=== PATIENT | female | born 1940 | race Asian ===

== ENCOUNTER 2017-09-22 07:20 | Observation (INO) | payer MEDICARE ==
--- NOTE | 2017-09-19 11:20 | Diagnostic Imaging Report ---
PROCEDURE: X-RAY CHEST, TWO VIEWS COMPARISON: None. INDICATIONS: PREOPERATIVE CHEST XRAY FOR KNEE SURGERY FINDINGS: LUNGS: No consolidations or edema. PLEURA: No effusions or pneumothorax. HEART \T\ MEDIASTINUM: The heart is within normal size-limits. Calcification within the aortic knob and tortuosity. BONES \T\ SOFT TISSUES: No acute findings. Moderate thoracolumbar scoliosis. CONCLUSION: No acute thoracic abnormality. Marcos Sanchez D.O. Dictated by: Marcos Sanchez D.O. on 09/19/2017 at 11:25 Electronically approved by: Marcos Sanchez D.O. on 09/19/2017 at 11:25
[~2017-09-22] VITALS: Ht 149.9 cm; Wt 43.8 kg
[~2017-09-22 07:20] MED LIST: AMLODIPINE BESYL5 MG PO; ATORVASTATIN CA10 MG PO; DIOVAN HCT 1601 EAC1 PO; DIOVAN HCT 3201 EACH PO; LEXAPRO10 MG PO; LIPITOR20 MG PO; METFORMIN HCL500 MG PO; PANTOPRAZOLE SO40 MG PO
[2017-09-22] MEDS ORDERED: ROPIVACAINE 246.25 MG, EPINEPHRINE HCL 1:1000 0.5 MG, CLONIDINE HCL 0.08 MG, KETOROLAC ... INJ ONE ×5 (07:30)
[2017-09-22] MEDS ORDERED: CELECOXIB 200 MG CAP ONE (07:54)
[2017-09-22] MEDS ORDERED: DEXAMETHASONE SOD PHOS 10 MG/1 ML VIAL ONE (07:55)
[2017-09-22] MEDS ORDERED: GABAPENTIN 300 MG CAP ONE (07:55)
[2017-09-22] MEDS ORDERED: CEFAZOLIN SOD 2 GM/D5W 50ML 50 ML IV ONE (07:55)
[2017-09-22] MEDS ORDERED: BACITRACIN 50,000 UNIT VIAL ONE (09:03)
[2017-09-22] MEDS ORDERED: TRANEXAMIC ACID 1,000 MG/10 ML ML ONE (09:03)
[2017-09-22] MEDS ORDERED: MUPIROCIN 2% OINT 22 GM TUBE ONE (09:03)
[2017-09-22] MEDS ORDERED: ACETAMINOPHEN 650 MG SUPP PR PRN (11:15)
[2017-09-22] MEDS ORDERED: PROMETHAZINE HCL (IM) 25 MG/ML VIAL IM PRN (11:15)
[2017-09-22] MEDS ORDERED: DIPHENHYDRAMINE HCL INJ 50 MG/ML VIAL IM/IV PRN (11:15)
[2017-09-22] MEDS ORDERED: ONDANSETRON HCL INJ 2 MG/ML VIAL IV PRN (11:15)
[2017-09-22] MEDS ORDERED: HYDROCODONE/APAP 7.5MG-325MG 1 EA TAB PO PRN (11:15)
[2017-09-22] MEDS ORDERED: HYDROCODONE/APAP 5MG-325MG TAB PO PRN (11:15)
[2017-09-22] MEDS ORDERED: DOCUSATE SODIUM 100 MG CAP PO PRN (11:15)
[2017-09-22] MEDS ORDERED: KETOROLAC TROMETHAMINE 30 MG/ML VIAL IV PRN (11:15)
[2017-09-22] MEDS: ACETAMINOPHEN 1000 MG/100 ML IV SCH ×2 (12:00→18:10)
--- NOTE | 2017-09-22 12:02 | Operative Report ---
DATE OF PROCEDURE: September 22, 2017 SENIOR DATA DEVELOPER: Robles Lopez PA-C The patient was brought to the operating room for induction of anesthesia. Throughout this case, my PA's assistance was necessary for retraction of soft tissue and positioning of the extremity. This allows for efficient and technically successful execution of the operation and is considered medically necessary. PREOPERATIVE DIAGNOSIS: Osteoarthritis, right knee. POSTOPERATIVE DIAGNOSIS: Osteoarthritis, right knee. PROCEDURE: Right total knee arthroplasty. INDICATIONS: The patient is a 77-year-old lady with end-stage arthritis in her right knee. She has failed extensive conservative management and would like to proceed with a right total knee replacement. The risks and benefits of the procedure have been discussed. She states she understands and wishes to proceed. DESCRIPTION OF PROCEDURE: The patient was brought into the operating room and placed under general anesthetic. She received prophylactic antibiotics, a regional block, and a dose-adjusted tranexamic acid in the holding area. Her right lower extremity was prepped and draped in a sterile manner. A preoperative time out was performed. Extremity was exsanguinated, and a proximal tourniquet was inflated to 275 mmHg. An anterior approach with a medial parapatellar arthrotomy was performed. Clear synovial fluid was evacuated from the joint. Complete loss of articular cartilage was noted in the medial compartment. Soft-tissue releases were performed to bring the knee up into flexion with the patella everted. The cruciate ligaments, meniscal remnants and marginal osteophytes were removed. A [employer] II posterior stabilized knee system was used throughout the case. An extramedullary cutting guide was used to resect the proximal tibia. The posterior slope was dialed in to match the existing slope. The tibial baseplate was noted to be a size number 2. The central fin punch was carefully impacted, and attention was directed towards the distal femur. An intramedullary cutting guide was used to resect the distal femur in 6 degrees of valgus and rotation referenced off of a combination of landmarks including [place] line , the epicondylar axis and posterior condyles. The femoral component was a size number 3. The anterior and posterior cuts were made. Trial reductions were performed. A 9-mm ultracongruent tibial insert provided appropriate soft-tissue balancing in flexion and extension. The patella was resurfaced with a 26 mm x 7.5 mm patellar button. The thickness was checked before and after and was between 18 and 19 mm each time. Patellar tracking was noted to be concentric. The trial implants were removed. A dose-adjusted pericapsular CLAUDIA injection was placed into the surrounding soft tissue. The knee was thoroughly irrigated with a Pulsavac. The components were cemented into place using a single mix of [place] cement preloaded with antibiotics. Care was taken to remove extravasated cement. The wound was further irrigated while the cement cured. The arthrotomy was closed with interrupted #1 Ethibond. The knee was put through flexion and extension to ensure a secure closure. The skin was then closed with subcuticular Vicryl and ruby. A sterile bandage was applied. The patient was extubated and transported to the recovery room in stable condition. Blood loss was minimal. All needle and sponge counts were correct. Job#: [id number]
--- NOTE | 2017-09-22 12:06 | Diagnostic Imaging Report ---
PROCEDURE:X-RAY RIGHT KNEE, ONE OR TWO VIEWS COMPARISON:None. INDICATIONS:STATUS POST RIGHT KNEE SURGERY FINDINGS:Status post total right knee arthroplasty with intact prosthesis in adequate anatomic alignment. There is post-operative soft tissue swelling and gas. Multiple surgical skin ruby. No acute fracture-dislocation. No definite intra-osseous lesion. CONCLUSION:Status post total right knee arthroplasty with intact prosthesis in adequate anatomic alignment. Dictated by: Richard Glasgow M.D. on 09/22/2017 at 12:10 Electronically approved by: Richard Glasgow M.D. on 09/22/2017 at 12:10
[2017-09-22] MEDS ORDERED: LABETALOL HCL 20 ML ONE (12:14)
[2017-09-22 13:46] VITALS: BP 184/83
[2017-09-22 14:00] VITALS: BP 184/83
[2017-09-22] MEDS: SODIUM CHLORIDE 0.9% 1000ML 1,000 ML IV SCH ×2 (16:24→21:08)
[2017-09-22 17:22] VITALS: BP 163/78
[2017-09-22] MEDS ORDERED: ROCURONIUM BROMIDE 10 MG/ML 5ML VIAL ONE (17:29)
[2017-09-22] MEDS ORDERED: PROPOFOL IV EMULSION 10 MG/ML 20 ML VIAL ONE (17:29)
[2017-09-22] MEDS ORDERED: GLYCOPYRROLATE INJ 1MG/ 5 ML SYR ONE (17:29)
[2017-09-22] MEDS ORDERED: NEOSTIGMINE 5 MG/5ML SYR ONE (17:29)
[2017-09-22] MEDS ORDERED: SEVOFLURANE INHAL SOLN 250 ML PEN BTL ONE (17:29)
[2017-09-22] MEDS ORDERED: LABETALOL HCL 5 MG/ML 20ML VIAL ONE (17:29)
[2017-09-22] MEDS ORDERED: LIDOCAINE HCL 2% LOCAL INJ 5 ML SDV VIAL INJ ONE (17:29)
[2017-09-22] MEDS ORDERED: ONDANSETRON HCL INJ 2 MG/ML VIAL ONE (17:29)
[2017-09-22] MEDS ORDERED: EPINEPHRINE HCL INJ 1 MG/ML AMP ONE (17:39)
[2017-09-22] MEDS ORDERED: BUPIVACAINE HCL 0.5% INJ 30 ML VIAL INJ ONE (17:39)
[2017-09-22] MEDS ORDERED: FENTANYL CITRATE/PF 100MCG/2 ML INJ ONE (17:43)
[2017-09-22] MEDS ORDERED: MIDAZOLAM HCL 2 MG/2 ML VIAL ONE (17:43)
[2017-09-22] MEDS ORDERED: CEFAZOLIN SOD 1 GM/D5W 50ML 50 ML IV SCH (18:00)
[2017-09-22] MEDS: ASPIRIN 325 MG TAB PO SCH (18:10)
[2017-09-22] MEDS: CEFAZOLIN SOD 1 GM VIAL IV SCH (18:31)
[2017-09-22 20:00] VITALS: BP 141/71
[2017-09-22] MEDS ORDERED: ZOLPIDEM TARTRATE 5 MG TAB PO PRN (21:00)
[2017-09-23] VITALS: BP 150/69
[2017-09-23] MEDS: ACETAMINOPHEN 1000 MG/100 ML IV SCH ×2 (00:30→06:00)
[2017-09-23] MEDS: CEFAZOLIN SOD 1 GM VIAL IV SCH ×2 (03:56→10:00)
[2017-09-23 04:00] VITALS: BP 169/86
[2017-09-23 04:51] LABS: HEMATOCRIT 30.4 % (34.2-44.1); HEMOGLOBIN 10.2 g/dL (12.0-16.0)
[2017-09-23 08:00] VITALS: BP 171/73
[2017-09-23] MEDS ORDERED: ACETAMINOPHEN 325 MG TAB PO PRN (09:00)
[2017-09-23] MEDS ORDERED: HYDROCODONE/APAP 7.5MG-325MG 1 EA TAB PO PRN (09:00)
[2017-09-23] MEDS: ASPIRIN 325 MG TAB PO SCH ×2 (09:00→17:41)
[2017-09-23] MEDS ORDERED: DEXTROSE 50% SYRINGE 50 ML IV PRN (09:30)
[2017-09-23] MEDS ORDERED: ACETAMINOPHEN 1000 MG/100 ML IV PRN (11:15)
[2017-09-23] MEDS: INSULIN LISPRO 100 UNIT/1 ML 3ML VIAL SQ SCH ×2 (11:30→16:30)
[2017-09-23 12:00] VITALS: BP 144/63
[2017-09-23] MEDS ORDERED: ASPIRIN325 MG PO (12:44)
[2017-09-23 15:43] VITALS: BP 182/86
== END 2017-09-23 17:50 | disposition home or self-care (01) ==
LOC: OR 07:20 → PACU V 11:10 → MED/SURG 13:54
PROVIDERS: ADMIT Specialist; ATTEND Specialist
DX: M17.11 Unilateral primary osteoarthritis, right knee (principal); E11.9 Type 2 diabetes mellitus without complications; I10 Essential (primary) hypertension; E78.00 Pure hypercholesterolemia, unspecified; K25.9 Gastric ulcer, unspecified as acute or chronic, without hemorrhage or perforation
CPT/HCPCS: 27447; 36415 ×2; 71046; 73560; 82948 ×2; 85014; 85018; 86850; 86900; 86920; 97139; 97161; 97530 ×2; C1713; G0378 ×2; G8978; G8979; J0171; J0690 ×2; J1100; J1885; J2001; J2250; J2405; J2795; J3490 ×2; J7030 ×2